=== PATIENT | male | born 1960 | race African-American/Black ===

== ENCOUNTER 2018-07-23 06:02 | Observation (INO) ==
[2018-07-23] MEDS ORDERED: NITROGLYCERIN 2% OINT 1 INCH/GM PACK TOP STA (06:36)
[2018-07-23] MEDS ORDERED: METOPROLOL TARTRATE 5 MG/5 ML VIAL IV STA (06:36)
[2018-07-23] MEDS ORDERED: ONDANSETRON 4 MG/2 ML VIAL IV STA (06:36)
[2018-07-23 07:26] LABS: Basophils # 0.1 10*3/uL (0.0-0.2); Basophils % 0.7 % (0.0-0.8); Eosinophils # 0.2 10*3/uL (0.0-0.87); Eosinophils % 2.6 % (0.00-10.9); Hematocrit 47.7 VOL% (42.0-52.0); Hemoglobin 15.4 GM/DL (14.0-18.0); Immature Granulocytes % 0.4 %; Immature Granulocytes Absolute 0.04 #; Lymphocytes # 3.3 10*3/uL (1.4-4.0); Lymphocytes % 36.9 % (21.2-54.2); Mean Corpuscular HGB Conc 32.3 GM/DL (32-36); Mean Corpuscular Hemoglobin 29 PG (27-34); Mean Corpuscular Volume 88.5 FL (87-102); Mean Platelet Volume 9.8 FL (9.6-12.0); Monocytes % 10.8 % (1.7-12.7); Neutrophils # 4.3 10*3/uL (1.4-7.4); Neutrophils % 48.6 % (38.7-73.9); Platelet Count 381 T/CUMM (130-400); Red Blood Count 5.39 MC/CUMM (3.8-5.5); Red Cell Distribution Width 14.9 % (9.3-17.3); White Blood Count 8.9 T/CUMM (4-12)
[2018-07-23 07:39] LABS: Albumin 3.3 G/DL (3.4-5.0); Bilirubin,Total 0.4 MG/DL (0.2-1.0); Calcium 8.4 MG/DL (8.5-10.1); Osmolality,Calculated 283.1 MOS/KG (273-304); Potassium 3.6 MMOL/L (3.5-5.1); Total Protein 7.2 G/DL (6.4-8.3)
[2018-07-23] MEDS ORDERED: hydrALAZINE 20 MG/1 ML VIAL IV STA (08:10)
[2018-07-23] MEDS ORDERED: ACETAMINOPHEN 325 MG TABLET PO PRN (08:20)
[2018-07-23] MEDS ORDERED: DOCUSATE SODIUM 100 MG CAPSULE PO PRN (08:20)
[2018-07-23] MEDS ORDERED: hydrALAZINE 20 MG/1 ML VIAL IV PRN (08:23)
[2018-07-23] MEDS ORDERED: SODIUM CHLORIDE 0.9% 1,000 ML IV SCH (08:30)
[2018-07-23 08:43] LABS: Risk Ratio 3.69; VLDL CHOLESTEROL 27.2 MG/DL
[2018-07-23] MEDS ORDERED: LISINOPRIL 10 MG TABLET ONE (08:55)
[2018-07-23] MEDS ORDERED: CARVEDILOL 3.125 MG TABLET ONE (08:55)
[2018-07-23] MEDS ORDERED: ASPIRIN 325 MG TABLET PO SCH (09:00)
[2018-07-23] MEDS: CARVEDILOL 12.5 MG TABLET PO SCH ×2 (09:07→20:55)
[2018-07-23] MEDS: LISINOPRIL 20 MG TABLET PO SCH (09:07)
[2018-07-23] MEDS: ENOXAPARIN 40 MG/0.4 ML SYRINGE SUBCUT SCH (09:07)
[2018-07-23] MEDS: PANTOPRAZOLE 40 MG VIAL IV SCH (09:15)
[2018-07-23] MEDS ORDERED: PERMETHRIN 5% CREAM 60 GM TUBE TOP ONE (09:38)
[2018-07-23] MEDS ORDERED: FUROSEMIDE 40 MG/4 ML VIAL IV STA (09:41)
[2018-07-23 11:03] LABS: Total Protein (Chem) 7.2 G/DL (6.4-8.3)
[2018-07-23 11:30] LABS: Troponin I < 0.015 NG/ML (0.00-0.045)
[2018-07-23] MEDS: MORPHINE 4 MG/1 ML VIAL IV PRN (13:53)
[2018-07-23] MEDS: ONDANSETRON 4 MG/2 ML VIAL IV PRN (13:54)
[2018-07-23] MEDS: FUROSEMIDE 40 MG/4 ML VIAL IV SCH (15:16)
[2018-07-23 15:41] LABS: Troponin I < 0.015 NG/ML (0.00-0.045)
[2018-07-23] MEDS ORDERED: ATORVASTATIN 10 MG TABLET PO SCH (21:00)
[2018-07-24] MEDS: ONDANSETRON 4 MG/2 ML VIAL IV PRN (04:06)
[2018-07-24] MEDS: MORPHINE 4 MG/1 ML VIAL IV PRN (04:06)
[2018-07-24 05:42] LABS: Albumin 3.2 G/DL (3.4-5.0); Bilirubin,Total 0.8 MG/DL (0.2-1.0); Calcium 8.6 MG/DL (8.5-10.1); Osmolality,Calculated 282.3 MOS/KG (273-304); Potassium 3.2 MMOL/L (3.5-5.1); Total Protein 6.7 G/DL (6.4-8.3)
[2018-07-24 08:30] LABS: Albumin (SPE) Rel % 56.3 %; Alpha 1 (SPE) 0.2 G/DL (0.1-0.4); Alpha 1 (SPE) Rel % 2.8 %; Alpha 2 (SPE) 0.9 G/DL (0.4-1.0); Alpha 2 (SPE) Rel % 12.4 %; Beta (SPE) 0.8 G/DL (0.5-1.1); Beta (SPE) Rel % 11.8 %; Gamma (SPE) 1.2 G/DL (0.7-1.7); Gamma (SPE) Rel % 16.7 %
[2018-07-24] MEDS ORDERED: ASPIRIN EC 81 MG TABLET PO SCH (09:00)
[2018-07-24] MEDS ORDERED: POTASSIUM CHLORIDE 20 MEQ TABLET PO SCH (09:00)
[2018-07-24] MEDS: ENOXAPARIN 40 MG/0.4 ML SYRINGE SUBCUT SCH (09:58)
[2018-07-24] MEDS: PANTOPRAZOLE 40 MG VIAL IV SCH (09:58)
[2018-07-24] MEDS: FUROSEMIDE 40 MG/4 ML VIAL IV SCH ×2 (09:59→16:23)
[2018-07-24] MEDS: LISINOPRIL 20 MG TABLET PO SCH (09:59)
[2018-07-24] MEDS: CARVEDILOL 12.5 MG TABLET PO SCH (10:00)
[2018-07-24] MEDS ORDERED: ERGOCALCIFEROL 50,000 UNIT CAPSULE PO SCH (11:00)
[2018-07-24] MEDS ORDERED: PERMETHRIN 5% CREAM 60 GM TUBE TOP SCH (12:00)
[2018-07-24] MEDS ORDERED: REGADENOSON 0.4 MG/5 ML SYRINGE IV ONE (12:51)
[2018-07-24 15:58] VITALS: BP 164/99
== END 2018-07-24 19:08 | disposition home or self-care (01) ==
LOC: EDUNIT# → EDBD → N.ED 06:02 → N.EDINP 06:02 → N.TELEN 14:40
PROVIDERS: ADMIT Internal Medicine; ATTEND Internal Medicine